=== PATIENT | female | born 1995 | race African-American/Black ===

== ENCOUNTER 2020-10-19 04:44 | Emergency (ER) | payer OTHER | END 2020-10-19 05:00 | disposition left against medical advice (07) | LOC: ER1 04:44 | DX: Z53.21 Procedure and treatment not carried out due to patient leaving prior to being seen by health care provider (principal) ==

== ENCOUNTER 2020-11-06 09:03 | Emergency (ER) | payer OTHER ==
[~2020-11-06] VITALS: Ht 139.7 cm; Wt 72.6 kg
[2020-11-06 10:09] LABS: HEMOGLOBIN 12.4 gm/dl (12.3-15.3); RED BLOOD COUNT 4.24 M/UL (4.00-5.10); WHITE BLOOD COUNT 6.6 K/UL (4.5-11.0)
[2020-11-06 10:24] LABS: BUN/CREATININE RATIO 9 (0-10)
[2020-11-06] MEDS ORDERED: ERYTHROMYCIN O3.5 GM OU (17:42)
[2020-11-07 04:00] LABS: BUN/CREATININE RATIO 8 (0-10)
[2020-11-08 07:11] LABS: HIV SCREEN 4TH GENERATION WRFX Non Reactive (Non Reactive)
[2020-11-08 09:14] LABS: RPR Non Reactive (Non Reactive)
[2020-11-08 11:14] LABS: HBSAG SCREEN Negative (Negative); HEP A AB, IGM Negative (Negative); HEP B CORE AB, IGM Negative (Negative); HEP C VIRUS AB >11.0 (0.0-0.9)
== END 2020-11-07 15:26 | disposition home or self-care (01) ==
LOC: ER1 09:03 → CDU 19:29 → ER1 19:29 → CDU 19:29 → ER1 11-07 15:26
PROVIDERS: Internal Medicine; Physician Assistant
DX: R41.82 Altered mental status, unspecified (principal); F41.9 Anxiety disorder, unspecified; H10.9 Unspecified conjunctivitis; F19.10 Other psychoactive substance abuse, uncomplicated; Z20.822 Contact with and (suspected) exposure to COVID-19
CPT/HCPCS: 36600; 70450; 71045; 80048; 80053; 80074; 80307; 81001; 82550; 82553; 82803; 83605; 84484; 84703; 85025; 86592; 87040; 87389; 96365; 96366; 96368; 96375; 99285; J0456; J0696; U0002